=== PATIENT | female | born 1965 | race Caucasian/White ===

== ENCOUNTER 2023-01-13 11:38 | Emergency (ER) | payer BC ==
[~2023-01-13] VITALS: Ht 167.6 cm; Wt 72.6 kg
[2023-01-13 11:52] VITALS: BP_SYST 106; PULSE 85; RESP 20; TEMP 98.2; O2SAT 98
[2023-01-13] MEDS ORDERED: HYDR-3927 PO (13:43)
[2023-01-13 17:01] VITALS: BP_SYST 106; PULSE 85; RESP 20; TEMP 98.2; O2SAT 98
== END 2023-01-13 15:10 | disposition home or self-care (01) ==
LOC: SED 11:38
DX: S82.421A Displaced transverse fracture of shaft of right fibula, initial encounter for closed fracture (principal); Z79.899 Other long term (current) drug therapy; W18.42XA Slipping, tripping and stumbling without falling due to stepping into hole or opening, initial encounter; Y93.89 Activity, other specified; Y92.89 Other specified places as the place of occurrence of the external cause; Y99.8 Other external cause status
CPT/HCPCS: 99283